=== PATIENT | female | born 2000 | race Caucasian/White ===

== ENCOUNTER 2020-03-19 16:13 | Outpatient (REF) | payer SELFPAY | END 2020-03-19 16:14 | disposition home or self-care (01) | LOC: HO.LNP 16:13 | PROVIDERS: Visit Provider Physician Assistant Medical | DX: Z02.1 Encounter for pre-employment examination (principal); Z20.828 Contact with and (suspected) exposure to other viral communicable diseases | CPT/HCPCS: 87635 ==

== ENCOUNTER 2020-12-25 21:41 | Emergency (ER) | payer OTHER, SELFPAY ==
[2020-12-25 22:07] VITALS: BP 126/78; PULSE 93; RESP 18; TEMP 37.2; O2SAT 99; BMI 33.7
[2020-12-26] MEDS: Lidocaine HCl 1 % MPF 5 ML VIAL INFILTRATI ×2 (00:10)
--- NOTE | 2020-12-26 00:12 | ED_ITS ---
HPI - Skin/Abscess/Foreign Bdy General Chief complaint: Skin/Abscess/Foreign Body Stated complaint: cyst? Time Seen by Provider: 12/25/20 23:34 Source: patient Mode of arrival: ambulatory Limitations: no limitations History of Present Illness HPI narrative: 20-year-old female who presents emergency department for evaluation of an lump to her right groin area. She states that the lump started approximately 4-5 days prior is gotten progressively larger. The lump is painful, the pain is constant and is moderate to severe in intensity. Patient states that she has had small cyst in this area in past which she is treated with heat. She has never had to have an abscess drained in this area. She denied fever, chills, weakness, fatigue. Related Data Previous Rx's Medication Instructions Recorded cephalexin 500 mg capsule 500 mg PO QID 5 Days #20 cap 12/26/20 Allergies Allergy/AdvReac Type Severity Reaction Status Date / Time No Known Allergies Allergy Verified 12/25/20 22:07 [No Known Allergies*] Review of Systems Review of Systems: Yes all other systems are reviewed and are negative [facility] Past Medical History [facility] Narrative: Past medical history: None . Past surgical history: None. Social history: She denies tobacco, alcohol use, she occasionally smokes marijuana. Social History Social History Advance Directives: No Advance Directives Information Provided: No Patient : No Physical Exam Vital Signs: Vital Signs: Last Vital Signs Temp 98.9 F 12/25/20 22:07 Pulse 93 12/25/20 22:07 Resp 18 12/25/20 22:07 BP 126/78 12/25/20 22:07 Pulse Ox 99 12/25/20 22:07 Body Mass Index 33.7 Const: General: cooperative and healthy appearing Orientation/consciousness: oriented to person Limitations: no limitations HENMT: Head: Yes normocephalic and Yes atraumatic Resp: Effort & Inspection: normal respiratory effort Skin: Other: The patient has a 3 x 3 cm right groin abscess, abscesses flocculence, there is surrounding erythema with increased warmth Neuro: General: oriented to person Psych: Appearance: grossly normal Mental Status: mental status grossly normal Speech and movement: Normal speech and movement present Course Course Course Narrative: 20-year-old female who presents emergency department for evaluation of painful right groin abscess. The patient's abscess was incised, drained packed with iodoform gauze. The patient tolerated the procedure well. She was given ibuprofen 600 mg orally for pain. She will be treated with Keflex 500 mg orally. She was started on Keflex 500 mg 4 times a day for 5 days. She was advised to take Tylenol and ibuprofen for pain. The patient was given verbal and printed instructions prior to discharge. The patient was advised to follow-up with their PCP in 2 days and to return to the emergency department if her symptoms get worse or if she develops any new symptoms that are concerning to her Procedures Abscess I/D Site: other (Groin) Side (if applicable): right Local Anesthetic: lidocaine 1% Amount of anesthesia used (mL): 10 Technique: incised with blade Amount of fluid expressed (mL): 45 Sent for culture/gram staining?: Yes Irrigation: No Packing used?: iodoform Discharge Plan Discharge Clinical Impression: Abscess of groin, right, Encounter for incision and drainage procedure Patient Disposition: Home, Self-Care Instructions: Abscess Incision and Drainage (DC) Additional Instructions: Your abscess was incised, drained and packed with gauze. Approximately 45 mL of loss was drained from the wound. The abscess cavity was packed with gauze. The gauze should stay in for 4 days. After 4 days grabbing and the gauze and pull it out. If the gauze falls out before 4 days, it does NOT need to be put back in. Take ibuprofen 200 mg pills, 3 pills every 6 hours as needed for pain. Take Tylenol (acetaminophen) 500 mg pills, 2 pills every 4 to 6 hours as needed for pain. Take Keflex (cephalexin) 500 mg pills, 1 pill 4 times a day for 5 days. This is an antibiotic. Follow-up with your doctor in 2 days. Please return to the emergency department if your symptoms get worse or if you develop any symptoms that are concerning to you. Prescriptions: New cephalexin 500 mg capsule 500 mg PO QID 5 Days Qty: 20 RF: 0
[2020-12-26] MEDS: Ibuprofen 600 MG TABLET PO (00:17)
[2020-12-26] MEDS: cephALEXin 500 MG CAPSULE PO (00:18)
== END 2020-12-26 00:44 | disposition home or self-care (01) ==
PROVIDERS: Emergency Provider Emergency Medicine Emergency Medical Services; PCP Internal Medicine
DX: L02.214 Cutaneous abscess of groin (principal)
CPT/HCPCS: 10060; 87071; 87147; 87205; 99283; 99284

== ENCOUNTER 2021-02-21 07:12 | Outpatient (REF) | payer OTHER, SELFPAY ==
[2021-02-21 07:42] LABS: COVID-19 Test Negative (Negative)
== END 2021-02-21 07:13 | disposition home or self-care (01) ==
LOC: HO.ED 07:12
PROVIDERS: PCP Internal Medicine; Visit Provider Internal Medicine
DX: Z20.822 Contact with and (suspected) exposure to COVID-19 (principal)
CPT/HCPCS: 36415; 87635

== ENCOUNTER 2021-02-22 00:50 | Emergency (ER) | payer OTHER, SELFPAY ==
[2021-02-22 00:55] VITALS: BP 134/77; PULSE 72; RESP 18; TEMP 36.8; O2SAT 99; BMI 35.4
--- NOTE | 2021-02-22 01:16 | ED_ITS ---
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 does not have RSV or flu Related Data Previous Rx's Medication Instructions Recorded cephalexin 500 mg capsule 500 mg PO QID 5 Days #20 cap 12/26/20 Allergies Allergy/AdvReac Type Severity Reaction Status Date / Time No Known Allergies Allergy Verified 12/25/20 22:07 [No Known Allergies*] Review of Systems Review of Systems: Yes all other systems are reviewed and are negative PMFSH Past Medical History Medical History No known health problems Social History Social History Advance Directives: No Advance Directives Information Provided: No Patient : No Physical Exam Vital Signs: Vital Signs: Last Vital Signs Temp 98.3 F 02/22/21 00:55 Pulse 72 02/22/21 00:55 Resp 18 02/22/21 00:55 BP 134/77 02/22/21 00:55 Pulse Ox 99 02/22/21 00:55 Body Mass Index 35.4 Appearance: Alert. Oriented X3. No acute distress. ENT: Pharynx normal. Oral Mucosa moist clear discharge from the nostrils, tympanic membrane normal bilateral Neck: Normal inspection. Neck supple. No lymphadenopathy CVS: Normal heart rate and rhythm. Pulses normal. Respiratory: No respiratory distress. Equal air entry bilateral, no wheezing/rales/rhonchi Abdomen: Soft and nontender. Skin: Skin warm and dry. Extremities: No lower extremity edema. No calf tenderness Neuro: Oriented X 3. Medical Decision Making Lab Data Lab results reviewed: Yes I reviewed the patient's lab results. Labs: Lab Results 02/22/21 Range/Units 01:34 Coronavirus (PCR) NEGATIVE (Negative) Influenza Type A (PCR) NEGATIVE (Negative) Influenza Type B (PCR) NEGATIVE (Negative) RSV RNA Qual (PCR) NEGATIVE (Negative) Discharge Plan Discharge Clinical Impression: URI (upper respiratory infection) Qualifiers: URI type: unspecified viral URI Qualified Code(s): J06.9 - Acute upper res piratory infection, unspecified Patient Disposition: Home, Self-Care Instructions: Upper Respiratory Infection (ED) Additional Instructions: Will call you with the test results possible you might have RSV/flu Drink plenty of fluids Tylenol/Motrin for pain Prescriptions: No Action cephalexin 500 mg capsule 500 mg PO QID 5 Days Qty: 20 RF: 0 Interventions: ED Discharge Assessment Last Done: 02/22/21 01:37 Discharge Date/Time: 02/22/21 01:38
[2021-02-22 02:58] LABS: Influenza A PCR NEGATIVE (Negative); Influenza B PCR NEGATIVE (Negative); Resp Syncy Virus RNA Qual PCR NEGATIVE (Negative); SARS COV2 PCR INHOUSE NEGATIVE (Negative)
== END 2021-02-22 01:38 | disposition home or self-care (01) ==
PROVIDERS: Emergency Provider Internal Medicine; PCP Internal Medicine
DX: J06.9 Acute upper respiratory infection, unspecified (principal); Z20.822 Contact with and (suspected) exposure to COVID-19; Z79.899 Other long term (current) drug therapy
CPT/HCPCS: 0241U; 36415; 99283

== ENCOUNTER 2023-04-09 21:16 | Emergency (ER) | payer OTHER, SELFPAY ==
[2023-04-09 21:26] VITALS: BP 116/71; PULSE 77; RESP 18; TEMP 36.8; O2SAT 97; BMI 33.7
--- NOTE | 2023-04-09 23:30 | PC.NURSE ---
Patient presents for abscess to the left inner thigh. Area small and hard to palpation, tender to touch.
--- NOTE | 2023-04-09 23:47 | ED_ITS ---
HPI - General Adult General Chief complaint: Skin/Abscess/Foreign Body Stated complaint: ?abscess LT thigh Time Seen by Provider: 04/09/23 23:25 Source: patient Mode of arrival: ambulatory Limitations: no limitations History of Present Illness HPI narrative: 22 yold female presents to the ED for left thight area of redness and pain. patient states pmh of multiple episodes of abscess. Patient states no fever, chills, nuasea, or vomitting. Patient states no recent trauma to the area. patient states no leg swelling, calf pain, recent long travael, or recent surgery. patient states no fever or chills. Related Data Previous Rx's Medication Instructions Recorded cephalexin 500 mg capsule 500 mg PO QID 5 days #20 caps 12/26/20 cephalexin 500 mg capsule 500 mg PO QID 7 days #28 caps 04/09/23 doxycycline hyclate 100 mg capsule 100 mg PO BID 7 days #14 caps 04/09/23 naproxen 500 mg tablet 500 mg PO BID PRN pain 7 days #14 04/09/23 tabs Allergies Allergy/AdvReac Type Severity Reaction Status Date / Time No Known Allergies Allergy Verified 12/25/20 22:07 [No Known Allergies*] Review of Systems 2 Review of Systems: left thigh red area mass Yes all other systems are reviewed and are negative PMFSH Past Medical History Medical History No known health problems Social History Social History Alcohol intake: never Smoked in Last 30 Days: No Use of substances other than those prescribed or required for medical reasons: No Advance Directives: No Advance Directives Information Provided: Yes Physical Exam ED Vital Signs: Vital Signs - 24 hr 04/09/23 21:26 04/10/23 00:11 Temperature 98.2 F Pulse Rate 77 80 Respiratory Rate 18 18 Blood Pressure 116/71 120/55 L Pulse Oximetry 97 99 Oxygen Delivery Method Room Air Room Air BMI result Body Mass Index 33.7 Const General: cooperative, healthy appearing, comfortable, no acute distress, well developed and alert Orientation/consciousness: oriented to person, oriented to place, oriented to time and patient oriented x3 HENMT Head: Yes normal to inspection, Yes No palpable skull fracture present, Yes normocephalic, Yes atraumatic and No abrasion Eyes General: appearance normal, both eyes and all related structures Neck Neck: Yes normal visual inspection, Yes full ROM, Yes no lymphadenopathy, Yes no meningeal signs, Yes trachea midline, Yes supple, No anterior neck swelling and No tender Chest Chest palpation & inspection: normal inspection of the chest and normal palpation of entire chest wall Resp Effort & Inspection: normal respiratory effort and able to speak in complete sentences Auscultation: clear to auscultation bilaterally Cardio Jugular venous distension: no JVD Heart sounds: S1 normal heart sound present and S2 normal heart sound present GI Inspection: Yes normal to inspection Palpation (GI): Soft to palpation, not firm, nontender, no guarding and not rigid General: No CVA tenderness and Yes no CVA tenderness Back/Spine/Pelvis Back: no CVA tenderness, No CVA tenderness and No back tenderness Skin General skin exam: no rashes or lesions noted, elasticity normal and turgor normal Neuro General: oriented to person, oriented to place, oriented to time, patient oriented x3, gait normal, tone normal, moves all extremities, Normal light touch and pain sensation, no meningeal signs, no focal motor deficits, CN's II-XI intact bilaterally and normal sensation to monofilament Extrem General: Yes normal to inspection, Yes full ROM and Yes capillary refill normal Knee images: 2 1. erythematous area with mass without any fluctulance. Positive for tenderness on palpation. Rest of extremities is normal and negative for calf tenderness/erythema/pitting edema. Psych Appearance: grossly normal, well kempt and not disheveled Medical Decision Making Medical Decision Making MDM Narrative: 22 yold female presents to the ED for left thigh area of redness, pain, and hard mass. patient states there was an ingroin hair and she tried to pull out and than symptoms occurrd. patient denies any leg swelling, pitting edema, or calf tenderness. Diagnoses Early abscess vs cellulitis. Not suspecting DVT, necrotizing fascitisi, CHF, arterial occlusion, or fracture, or comparment syndrome. Presently no indicatino for I&D Differential Diagnosis Differential Diagnoses: The differential diagnosis associated with the presentation includes (cellulitis, carbuncle, folloliculits, absceess, DVT, ) External Record Review External record reviewed: Other (Prior ED visit. ) Prescription Management I considered prescription management with: Pain Medication and Antibiotic Discharge Plan Discharge Clinical Impression: Cellulitis, Abscess of skin or subcutaneous tissue Patient Disposition: Home, Self-Care Instructions: Cellulitis (ED), Abscess (ED), Warm Compress or Soak (ED) Additional Instructions: presently no indication for incision and drainage. Physical exam indicate cellulitis versus early abscess. Recommend warm compression on area 4 times a day for 15 minutes. He will be discharged with antibiotics. Return to the ED immediately for any increased swelling, redness, fever, chills, red streaks, or any other concerning symptoms. Please follow-up with the primary care provider. Prescriptions: New cephalexin 500 mg capsule 500 mg PO QID 7 Days Qty: 28 0RF doxycycline hyclate 100 mg capsule 100 mg PO BID 7 Days Qty: 14 0RF naproxen 500 mg tablet 500 mg PO BID PRN (Reason: pain) 7 Days Qty: 14 0RF No Action cephalexin 500 mg capsule 500 mg PO QID 5 Days Qty: 20 0RF Stand Alone Forms: Work/School Release Interventions: ED Discharge Assessment Last Done: 04/10/23 00:12 Discharge Date/Time: 04/10/23 00:14 Print Language: Luxembourger
[2023-04-10 00:11] VITALS: BP 120/55; PULSE 80; RESP 18; O2SAT 99
== END 2023-04-10 00:14 | disposition home or self-care (01) ==
PROVIDERS: Emergency Provider Emergency Medicine
DX: L03.116 Cellulitis of left lower limb (principal); L02.416 Cutaneous abscess of left lower limb
CPT/HCPCS: 99283; 99284

== ENCOUNTER 2023-06-02 14:16 | Emergency (ER) | payer OTHER, SELFPAY ==
[2023-06-02 14:50] VITALS: BP 116/72; PULSE 95; RESP 18; TEMP 36; O2SAT 100; BMI 35.4
[2023-06-02 17:03] VITALS: BP 130/80; PULSE 91; RESP 18; TEMP 36.7; O2SAT 99
[2023-06-02] MEDS: Lidocaine HCl 1%/Epi 1:100,000 10 ML VIAL INFILTRATI (17:45)
--- NOTE | 2023-06-02 18:05 | ED.GENADULT ---
HPI - General Adult General Chief complaint: Skin/Abscess/Foreign Body Stated complaint: abscess Time Seen by Provider: 06/02/23 17:14 Source: patient, RN notes reviewed and old records reviewed Mode of arrival: ambulatory Limitations: no limitations History of Present Illness HPI narrative: 22-year-old female presents for evaluation of ?an abscess. ? Patient reports that she gets frequent abscesses in her groin She was last seen here about 2 months ago and the area improved with antibiotics alone She states for last few days she has had an abscess to the right groin that is getting larger or more painful and not improving with warm compresses Denies any fevers, chills She reports that she is due to see Dermatology due to frequent abscesses Patient reports that she recently had STD screening at an outside facility but did not have bacterial vaginosis testing would like to have that done today. Related Data Previous Rx's Medication Instructions Recorded cephalexin 500 mg capsule 500 mg PO QID 5 days #20 caps 12/26/20 cephalexin 500 mg capsule 500 mg PO QID 7 days #28 caps 04/09/23 doxycycline hyclate 100 mg capsule 100 mg PO BID 7 days #14 caps 04/09/23 naproxen 500 mg tablet 500 mg PO BID PRN pain 7 days #14 04/09/23 tabs cephalexin 500 mg tablet 500 mg PO QID #28 tabs 06/02/23 Allergies Allergy/AdvReac Type Severity Reaction Status Date / Time No Known Allergies Allergy Verified 06/02/23 14:50 [No Known Allergies*] Review of Systems Constitutional: Constitutional: Denies chills and Denies fever(s) Integumentary/Breasts: Skin/Breast: Reports erythema, Reports skin pain and Reports skin swelling PMFSH Past Medical History Onset Date is defined in the Problem List Problems that require an onset date and time if occurred within 24 hrs of arrival to the ED Aortic Dissection and Rupture; Neurologic impairment; Cardiopulmonary Arrest; Endotracheal Intubation; Insertion or Replacement of Mechanical Circulatory Assist Device Medical History No known health problems Social History Social History Alcohol intake: never Advance Directives: No Advance Directives Information Provided: No Physical Exam ED Vital Signs: Vital Signs - 24 hr 01/05/24 14:50 06/02/23 17:03 Temperature 96.8 F 98.1 F Pulse Rate 95 91 Respiratory Rate 18 18 Blood Pressure 116/72 130/80 Pulse Oximetry 100 99 Oxygen Delivery Method Room Air Room Air BMI result Body Mass Index 35.4 Const General: healthy appearing, comfortable, no acute distress, alert and awake Nutritional Appearance: well nourished Orientation/consciousness: patient oriented x3 HENMT Head: Yes normocephalic and Yes atraumatic Neck Neck: Yes full ROM Resp Effort & Inspection: normal respiratory effort, able to speak in complete sentences and not labored Skin Other: Patient has a 2 x 3 cm area of fluctuance and edema to the right groin. There is minimal surrounding erythema, the area is tender to palpation. No open wounds or drainage. General skin exam: elasticity normal Neuro General: patient oriented x3 Cranial nerves: Yes Bilaterally intact EOM present Cognition (Neuro): normal cognition Extrem Other: Moving all extremities well without any obvious deformities Medications Administered Discontinued Medications Generic Name Dose Route Start Last Admin Trade Name Caryn PRN Reason Stop Dose Admin Lidocaine/Epinephrine 10 ml 06/02/23 17:26 06/02/23 17:45 Lidocaine Hcl 1%/Epi 1:100,000 10 Ml Vial INFILTRATI 06/02/23 17:27 10 ml ONCE ONE Administration Procedures Abscess I/D Site: other (Right groin) Side (if applicable): right Local Anesthetic: lidocaine 1% and with epi Amount of anesthesia used (mL): 4 Technique: incised with blade Amount of fluid expressed (mL): 5 Sent for culture/gram staining?: No Irrigation: No (Loculations disrupted with instrument) Packing used?: none Medical Decision Making Medical Decision Making MDM Narrative: 22-year-old female presents for evaluation of a localized abscess. See procedure note, there is no evidence of sepsis, she is well-appearing with stable vital signs. A BV swab was sent to the lab. Differential Diagnosis Differential Diagnoses: The differential diagnosis associated with the presentation includes Abscess Cellulitis Dermatitis Sebaceous cyst Hidradenitis PV Discharge Plan Discharge Clinical Impression: Abscess of skin or subcutaneous tissue Patient Disposition: Home, Self-Care Instructions: Abscess (ED) Additional Instructions: Take the antibiotic as directed for 7 days Apply warm compresses every 4 hours for 10-15 minutes Return for new or worsening symptoms Follow-up with your primary doctor Prescriptions: New cephalexin 500 mg tablet 500 mg PO QID Qty: 28 0RF No Action cephalexin 500 mg capsule 500 mg PO QID 5 Days Qty: 20 0RF cephalexin 500 mg capsule 500 mg PO QID 7 Days Qty: 28 0RF doxycycline hyclate 100 mg capsule 100 mg PO BID 7 Days Qty: 14 0RF naproxen 500 mg tablet 500 mg PO BID PRN (Reason: pain) 7 Days Qty: 14 0RF
--- NOTE | 2023-06-02 18:25 | MHC.EDTECH ---
this pct applied non-stick dressing to PT groin.
== END 2023-06-02 18:38 | disposition home or self-care (01) ==
PROVIDERS: Emergency Provider Emergency Medicine
DX: L02.214 Cutaneous abscess of groin (principal); Z20.2 Contact with and (suspected) exposure to infections with a predominantly sexual mode of transmission
CPT/HCPCS: 10060; 87480; 87510; 87660; 99283; 99284

== ENCOUNTER → 2024-12-12 03:45 | Outpatient (BNV) | payer OTHER, SELFPAY | PROVIDERS: Visit Provider Radiology Vascular & Interventional Radiology | DX: K80.20 Calculus of gallbladder without cholecystitis without obstruction (principal); R10.13 Epigastric pain | CPT/HCPCS: 71046; 76705 ==

== ENCOUNTER 2024-12-12 04:11 | Emergency (ER) | payer OTHER, SELFPAY ==
[2024-12-12] VITALS (12 sets, daily range): BP systolic 119–155; BP diastolic 68–89; PULSE 58–84; RESP 12–18; TEMP 36.2–36.9; O2SAT 96–100; BMI 38.3
--- NOTE | 2024-12-12 | ECG_ITS ---
Test Reason : ABDOMINAL PAIN Blood Pressure : */* mmHG Vent. Rate : 56 BPM Atrial Rate : 56 BPM P-R Int : 156 ms QRS Dur : 84 ms QT Int : 420 ms P-R-T Axes : 66 21 31 degrees QTcB Int : 405 ms Sinus bradycardia Nonspecific T wave abnormality Abnormal ECG No previous ECGs available Referred By: Generic ED Physician Electronically Signed By: LEON RODNEY
--- NOTE | ~2024-12-12 | XR_ITS ---
CLINICAL HISTORY: chest pain 2 view chest x-ray. Comparison: None Findings: The lungs are adequately expanded. No focal consolidation. No effusion or pneumothorax. Cardiac and mediastinal contours are within normal limits. No acute osseous abnormality Impression: No acute process. This document has been electronically signed by: Jd Sandhu MD on 12/12/2024 05:36:36
--- NOTE | ~2024-12-12 | US_ITS ---
EXAMINATION: US ABDOMEN LIMITED HISTORY: RUQ pain - GB and CBD only please TECHNIQUE: Real-time grayscale ultrasound imaging of the gallbladder was performed and images were reviewed. COMPARISON: There are no prior studies available for comparison. FINDINGS: Gallbladder and biliary tree: The gallbladder is distended. Numerous shadowing calculi are seen in the gallbladder. There is no wall thickening or pericholecystic fluid. The technologist reports tenderness over the gallbladder consistent with a positive sonographic Acevedo sign. The common bile duct is normal in caliber measuring 5 mm. There is no free fluid in the right upper quadrant. US/US abdomen limited IMPRESSION: Distended gallbladder with cholelithiasis and a positive sonographic Acevedo sign. Findings are consistent with acute cholecystitis. Electronically signed by: Familia Doss MD 12/12/2024 08:02 AM EDT
[2024-12-12 05:20] LABS: MANUAL DIFF FLAG NO
[2024-12-12 05:21] LABS: Hematocrit 36.0 % (37.0-47.0); Hemoglobin 12.0 g/dl (12.0-16.0); Imm Gran Abs Auto 0.02 X10*3/uL (0.00-0.03); Imm Gran Pct Auto 0.3 % (0.0-0.4); Lymphocytes Absolute Auto 2.1 X10*3/uL (1.2-4.9); Mean Corpuscular HGB Conc 33.3 g/dl (31.0-35.0); Mean Corpuscular Hemoglobin 28.5 pg (27.0-33.0); Mean Corpuscular Volume 85.5 fL (80.0-98.0); NRBC Abs Auto 0.000 X10*3/uL (0.0-0.012); NRBC Pct Auto 0.0 /100WBC (0.0-0.2); Platelet Count 281 X10*3/uL (160-400); Red Blood Count 4.21 X10*6/uL (4.20-5.50); White Blood Count 6.3 X10*3/uL (4.8-10.8)
[2024-12-12 05:39] LABS: Alanine Aminotransferase 10 U/L (0-31); Albumin Level 4.3 g/dL (3.5-5.0); Alkaline Phosphatase 96 U/L (39-117); Anion Gap 13 (12-20); Aspartate Amino Transferase 22 U/L (5-31); Blood Urea Nitrogen 12 mg/dL (9-16); Calcium 9.3 mg/dL (8.4-10.2); Carbon Dioxide 26 mmol/L (22-29); Chloride 107 mmol/L (96-108); Creatinine Clr Calc Pharmacy 136.3; Estimated Glomerular Filt Rate > 60; Lipase 14 U/L (8-78); Potassium 4.1 mmol/L (3.3-5.1); Sodium 142 mmol/L (135-145); Total Protein 7.6 g/dL (6.5-8.0)
[2024-12-12 05:40] LABS: Appearance Urine Clear; Glucose Urine UA Negative (Negative); PH 6.0 (5.0-9.0); Specific Gravity - Urine 1.020 (1.005-1.025); UMIC TRIGGER UACC YES
[2024-12-12 05:43] LABS: Troponin-I High Sensitivity < 2.7 ng/L (<3.5-17.0)
[2024-12-12 06:01] LABS: UACC Culture Trigger YES
--- NOTE | 2024-12-12 07:03 | ED.ABDPAIN ---
HPI - Abdominal Pain General Chief Complaint: Abdominal Pain Stated Complaint: 2 months + abd pain Time Seen by Provider: 12/12/24 06:58 Source: patient and old records reviewed Mode of arrival: ambulatory Limitations: no limitations History of Present Illness ED Provider: MICHELINE HPI narrative: 24 yo female with no sig PMH she is 2 months PP from normal vaginal delivery she is . She notes about 2 months of nightime upper abd pain now worse after eating. She has nausea as well but no vomiting or diarrhea. She takes no NSAIDs and did not take any post . No fevers or unintentional weight loss. She has never had this before. All foods bother her. MD elicited complaint: abdominal pain Pertinent past history: none Onset (ago): month(s) (2) Pain Consistency: intermittent Location: epigastric Severity: moderate Quality: aching Radiation: RUQ Migration to: no migration Exacerbating factors: eating Relieving factors: nothing Associated symptoms: nausea Related Data Previous Rx's ?Medication ?Instructions ?Recorded cephalexin 500 mg capsule 500 mg PO QID 5 days #20 caps 12/26/20 cephalexin 500 mg capsule 500 mg PO QID 7 days #28 caps 04/09/23 doxycycline hyclate 100 mg capsule 100 mg PO BID 7 days #14 caps 04/09/23 naproxen 500 mg tablet 500 mg PO BID PRN pain 7 days #14 04/09/23 tabs cephalexin 500 mg tablet 500 mg PO QID #28 tabs 06/02/23 metronidazole 500 mg tablet 500 mg PO BID 7 days #14 tabs 06/05/23 Allergies Allergy/AdvReac Type Severity Reaction Status Date / Time No Known Allergies (No Known Allergy Verified 12/12/24 04:32 Allergies*) Review of Systems Review of Systems Constitutional : No Weight loss, No Fever, No Chills ENT/Mouth : No sore throat, No Rhinorrhea Eyes: No Swelling, No Redness Cardiovascular : No Chest Pain, No SOB, No Edema Respiratory : No Cough, No Sputum, No Wheezing Gastrointestinal : Positive Nausea, no Vomiting, noDiarrhea, positive abdominal Pain, No Hematochezia, No Melena Genitourinary : No Dysuria, No Urinary Frequency, No Hematuria, No Urgency Musculoskeletal : No joint pain, No Myalgias, No Joint Swelling All other systems reviewed and are negative. All other systems reviewed and are negative PMFSH Past Medical History Attestation statement: The following information was validated with the patient. Source: old records reviewed Medical History No known health problems Social History Social History Alcohol intake: never Smoked in Last 30 Days: No Use of substances other than those prescribed or required for medical reasons: No Advance Directives: No Advance Directives Information Provided: Yes Do you have a plan to hurt others: No Plan Patient : No Physical Exam ED Vital Signs: Vital Signs - 24 hr 12/12/24 04:30 12/12/24 06:25 12/12/24 07:51 Temperature 98.5 F 98.5 F Pulse Rate 58 84 73 Respiratory Rate 17 18 18 Blood Pressure 125/72 131/86 125/74 Pulse Oximetry 99 96 99 Oxygen Delivery Method Nasal Cannula Room Air Room Air BMI result Body Mass Index 38.3 Appearance: Alert. Oriented X3. No acute distress. Eyes: Pupils equal, round and reactive to light. ENT: Pharynx normal. Neck: Normal inspection. Neck supple. CVS: Normal heart rate and rhythm. Pulses normal. Respiratory: No respiratory distress. Breath sounds normal. Abdomen: Soft and ttp in RUQ neg michel's sign Skin: Skin warm and dry. Normal skin color. Normal skin turgor. Extremities: No lower extremity edema. No calf ttp Neuro: Oriented X 3. No motor deficit. No sensory deficit. CN2-12 intact Medical Decision Making Medical Decision Making MDM Narrative: 24 yo female with 2 months of RUQ and epigastric pain at night and after eating - she has no risk factors for PUD and her exam there is no michel's sign. Given her symptoms I am going to obtain US and labs - liver, lipase. Suspect gastritis, PUD, biliary colic. She is I will start her on famotidine and sucralfate until she sees her PCP for h. pylori testing. Differential Diagnosis Differential Diagnoses: The differential diagnosis associated with the presentation includes PUD, gastritis, biliary colic no hemolysis, elevated liver enzymes, low platelets or HTN to suggest HELLP/preeclampsia Admission/Observation Consideration of admission/observation: Escalation of care including admission/observation considered to be admitted for surgery Consult Healthcare Provider Management of the patient was discussed with: Director Of [employer] (Nicholas david will see patient) Lab Data MDM Lab Attestation statement: I reviewed the patient's lab results. 12/12/24 05:15 12/12/24 05:15 Labs: Lab Results 12/12/24 12/12/24 Range/Units 05:15 05:33 WBC 6.3 (4.8-10.8) X10*3/uL RBC 4.21 (4.20-5.50) X10*6/uL Hgb 12.0 (12.0-16.0) g/dl Hct 36.0 L (37.0-47.0) % MCV 85.5 (80.0-98.0) fL MCH 28.5 (27.0-33.0) pg MCHC 33.3 (31.0-35.0) g/dl RDW 12.8 (11.0-16.0) % Plt Count 281 (160-400) X10*3/uL MPV 9.3 L (9.4-12.3) fL Immature Gran % (Auto) 0.3 (0.0-0.4) % Neut % (Auto) 58.2 (45-73) % Lymph % (Auto) 32.6 (20-40) % [place] % (Auto) 7.2 (2-11) % Eos % (Auto) 1.4 (0-4) % Baso % (Auto) 0.3 (0-2) % Lymph # (Auto) 2.1 (1.2-4.9) X10*3/uL [place] # (Auto) 0.5 (0.1-1.2) X10*3/uL Eos # (Auto) 0.1 (0.0-0.4) X10*3/uL Baso # (Auto) 0.0 (0.0-0.2) X10*3/uL Abs Immat Gran (auto) 0.02 (0.00-0.03) X10*3/uL Absolute Neuts (auto) 3.7 (2.0-8.3) x10*3/uL Absolute Nucleated RBC 0.000 (0.0-0.012) X10*3/uL Nucleated RBC % (auto) 0.0 (0.0-0.2) /100WBC Sodium 142 (135-145) mmol/L Potassium 4.1 (3.3-5.1) mmol/L Chloride 107 (96-108) mmol/L Carbon Dioxide 26 (22-29) mmol/L Anion Gap 13 (12-20) BUN 12 (9-16) mg/dL Creatinine 0.71 (0.5-1.4) mg/dL Estim Creat Clear Calc 136.3 Estimated GFR > 60 Random Glucose 89 (60-115) mg/dL Calcium 9.3 (8.4-10.2) mg/dL Total Bilirubin 0.4 (0.0-1.0) mg/dL AST 22 (5-31) U/L ALT 10 (0-31) U/L Alkaline Phosphatase 96 (39-117) U/L Troponin I High Sens < 2.7 (<3.5-17.0) ng/L Total Protein 7.6 (6.5-8.0) g/dL Albumin 4.3 (3.5-5.0) g/dL Lipase 14 (8-78) U/L Urine Color Yellow Urine Appearance Clear Urine pH 6.0 (5.0-9.0) Ur Specific [place] 1.020 (1.005-1.025) Urine Protein Negative (Neg-Trace) mg/dL Urine Glucose (UA) Negative (Negative) mg/dL Urine Ketones Negative (Negative) mg/dL Urine Blood Large (3+) H (Negative) Urine Nitrite Negative (Negative) Ur Leukocyte Esterase Small (1+) H (Negative) Urine RBC 11-20 H (0-2) /HPF Urine WBC 0-5 (0-5) /HPF Ur Squamous Epith Cells 0-2 (0-2) /HPF Urine Bacteria None Seen (None Seen) Hyaline Casts 0-2 (0-2) /LPF Independent Interpretation I performed an independent interpretation of an: EKG and Ultrasound (stones and + murphys) Interpretation: Rate: 56 Rhythm: sinus bradycardia Pillow: normal Normal P waves. Normal MALOU. Normal QRS complex. ST T wave : no PETEY, inverted t waves V1 qTC: 405 prior studies: no acute ischemia The study has been interpreted contemporaneously by me. . Radiology Impression Discussion of test interpretation with radiology: I have reviewed the radiologist's reading. External Record Review External record reviewed: Outpatient record Discharge Plan Discharge Clinical Impression: Biliary colic Gastritis Qualifiers: Gastritis type: unspecified gastritis Chronicity: acute Gastritis bleeding: without bleeding Qualified Code(s): K29.00 - Acute gastritis without bleeding Patient Disposition: Xfer Other Transfer Details: short stay surgery Prescriptions: No Action cephalexin 500 mg capsule 500 mg PO QID 5 Days Qty: 20 0RF cephalexin 500 mg tablet 500 mg PO QID Qty: 28 0RF metronidazole 500 mg tablet 500 mg PO BID 7 Days Qty: 14 0RF cephalexin 500 mg capsule 500 mg PO QID 7 Days Qty: 28 0RF doxycycline hyclate 100 mg capsule 100 mg PO BID 7 Days Qty: 14 0RF naproxen 500 mg tablet 500 mg PO BID PRN (Reason: pain) 7 Days Qty: 14 0RF Print Language: Vietnamese
--- NOTE | 2024-12-12 08:35 | PM.HPGS ---
History of Present Illness History of Present Illness Date of Service: 12/12/24 <Yesenia Corbett PA-C - Last Filed: 12/12/24 08:45> 12/12/24 <Santi Peterson MD - Last Filed: 12/12/24 09:07> Chief complaint: 2 months + abd pain <Yesenia Corbett PA-C - Last Filed: 12/12/24 08:45> Narrative: Milagro Lara is a 24 year old female with no known PMH who presented to the ED for evaluation of RUQ abd pain. She reports over the past month or so, she has been having RUQ abd pain, sometimes after eating. The pain would usually subside fairly quickly and was not that severe. The episodes became more frequent and now she reports over the past few days she has been woken up from her sleep due to the pain. It was so bad last night she was unable to fall back asleep. The pain is associated with nausea without vomiting. She therefore came to the ED. Work up included CBC, BMP, LFTs. No leukocytosis and LFTs WNL. ABD US showed distended gallbladder with gallstones and a positive sonographic Acevedo sign. She reports feeling a little better and the pain is less severe. She is 2 months , reports a normal spontaneous vaginal delivery, and is . She is on no daily medications. She denies fever, chills, diarrhea, sick contacts, change in urine/skin/stool color. <Yesenia Corbett PA-C - Last Filed: 12/12/24 08:45> Review of Systems Review of Systems: Yes all other systems are reviewed and are negative <Yesenia Corbett PA-C - Last Filed: 12/12/24 08:45> PMFSH Past Medical History Medical History: Medical History No known health problems <Yesenia Corbett PA-C - Last Filed: 12/12/24 08:45> Social History Social History: Social History Alcohol intake: never Smoked in Last 30 Days: No Use of substances other than those prescribed or required for medical reasons: No Advance Directives: No Advance Directives Information Provided: Yes Do you have a plan to hurt others: No Plan Patient : No <ARSALAN Castañeda Last Filed: 12/12/24 08:45> Meds Allergies/Adverse reactions: Allergies Allergy/AdvReac Type Severity Reaction Status Date / Time No Known Allergies (No Known Allergy Verified 12/12/24 04:32 Allergies*) <ARSALAN Castañeda Last Filed: 12/12/24 08:45> Active Medications: Current Medications Cefotetan Disodium (Cefotetan Disodium 2 Gm Vial) 2 gm IM ONCE ONE Stop: 12/12/24 08:35 Lactated Ringer's (Lr) 1,000 mls @ 999 mls/hr IV .Q1H1M ONE Stop: 12/12/24 09:22 <ARSALAN Castañeda Last Filed: 12/12/24 08:45> Physical Exam Vital Signs: Vital Signs: Last Vital Signs Temp 98.5 F 12/12/24 06:25 Pulse 73 12/12/24 07:51 Resp 18 12/12/24 07:51 BP 125/74 12/12/24 07:51 Pulse Ox 99 12/12/24 07:51 O2 Del Method Room Air 12/12/24 07:51 BMI result Body Mass Index 38.3 <ARSALAN Castañeda Last Filed: 12/12/24 08:45> Const: General: comfortable, no acute distress and alert <ARSALAN Castañeda Last Filed: 12/12/24 08:45> Orientation/consciousness: patient oriented x3 <ARSALAN Castañeda Last Filed: 12/12/24 08:45> Resp: Effort & Inspection: normal respiratory effort, able to speak in complete sentences, not labored and not tachypneic <ARSALAN Castañeda Last Filed: 12/12/24 08:45> GI: Other: mildly corpulent abdomen <ARSALAN Castañeda Last Filed: 12/12/24 08:45> Inspection: No distended and No scar <ARSALAN Castañeda Last Filed: 12/12/24 08:45> Palpation (GI): Soft to palpation, Tenderness to palpation present (GI) in the RUQ (mild); Acevedo's sign negative, no guarding and not rigid <Yesenia Corbett PA-C Last Filed: 12/12/24 08:45> Percussion: Yes normal to percussion <Yesenia Corbett PA-C Last Filed: 12/12/24 08:45> Skin: General skin exam: no rashes or lesions noted and no jaundice <Yesenia Corbett PA-C Last Filed: 12/12/24 08:45> Neuro: General: patient oriented x3 and moves all extremities <ARSALAN Castañeda Filed: 12/12/24 08:45> Results Results Labs: Short CBC 12/12/24 Range/Units 05:15 WBC 6.3 (4.8-10.8) X10*3/uL Hgb 12.0 (12.0-16.0) g/dl Hct 36.0 L (37.0-47.0) % Plt Count 281 (160-400) X10*3/uL BMP 12/12/24 05:15 Sodium 142 Potassium 4.1 Chloride 107 Carbon Dioxide 26 BUN 12 Creatinine 0.71 Calcium 9.3 Liver Function 12/12/24 Range/Units 05:15 Total Bilirubin 0.4 (0.0-1.0) mg/dL AST 22 (5-31) U/L ALT 10 (0-31) U/L Alkaline Phosphatase 96 (39-117) U/L Albumin 4.3 (3.5-5.0) g/dL Urine 12/12/24 Range/Units 05:33 Urine Color Yellow Urine Appearance Clear Urine pH 6.0 (5.0-9.0) Ur Specific [place] 1.020 (1.005-1.025) Urine Protein Negative (Neg-Trace) mg/dL Urine Glucose (UA) Negative (Negative) mg/dL <ARSALAN Castañeda Last Filed: 12/12/24 08:45> Chest x-ray: report reviewed and image reviewed <ARSALAN Castañeda Last Filed: 12/12/24 08:45> Abdominal ultrasound report/results: report reviewed and image reviewed <Yesenia Corbett PA-C - Last Filed: 12/12/24 08:45> Additional studies: labs reviewed <Yesenia Corbett PA-C - Last Filed: 12/12/24 08:45> Assessment and Plan (1) Biliary colic: Status: Acute <Yesenia Corbett PA-C - Last Filed: 12/12/24 08:45> She has had worsening right upper quadrant pain which has also becoming more frequent the past. Currently tender on the right upper quadrant Ultrasound reviewed -gallstones with positive sonographic Acevedo's sign LFTs normal Lipase normal In view of her worsening tenderness and pain, I offered her the option of proceeding with cholecystectomy today I explained the technique of laparoscopic cholecystectomy and possible open cholecystectomy I reviewed the risks including but not limited to bleeding, infections, injury to other organs including bowel, liver and the bile duct, bile leak, retained stones, as well as the benefits and alternatives She understands and wants to proceed Her was involved with the discussion The patient was seen and examined with DIALLO Corbett <Santi Peterson MD - Last Filed: 12/12/24 09:07> 24 year old female with intermittent episodes of RUQ pain with pain that has become more constant and severe over the past several days with imaging showing gallstones, distended gallbladder without surrounding inflammatory changes. Overall picture with worsening biliary colic, possible acute cholecystitis. In view of her worsening symptoms, laparoscopic possible open cholecystectomy was recommended. Risks, benefits, alternatives of laparoscopic possible open cholecystectomy were reviewed with the patient including but not limited to bleeding, infection, numbness, pain, poor healing, injury to the liver, bowel or bile ducts, leak, retained stones and the patient wishes to proceed.? Arrangements will be made for this today.?All questions were answered. Patient expresses wish to go home following the procedure today if possible. <Yesenia Corbett PA-C - Last Filed: 12/12/24 08:45> Quality Stroke Does the patient have a stroke diagnosis?: No <ARSALAN Castañeda Last Filed: 12/12/24 08:45> VTE Prior VTE?: No <Yesenia Corbett PA-C - Last Filed: 12/12/24 08:45> VTE Risk Level:: Surgical - low <Yesenia Corbett PA-C - Last Filed: 12/12/24 08:45> VTE Device Contraindication: N/A - Device Ordered <Yesenia Corbett PA-C - Last Filed: 12/12/24 08:45> VTE Drug Contraindication: Treatment Not Indicated <Yesenia Corbett PA-C - Last Filed: 12/12/24 08:45> Procedures Date of Service Date of Service: 12/12/24 <Yesenia Corbett PA-C - Last Filed: 12/12/24 08:45> 12/12/24 <Santi Peterson MD - Last Filed: 12/12/24 09:07>
[2024-12-12] MEDS: Lactated Ringers 1,000 ML 999 ML IV (08:53)
[2024-12-12] MEDS: Lactated Ringers 1,000 ML 80 ML IVCONT (10:55)
--- NOTE | 2024-12-12 11:37 | HO.ANESPROP2 ---
FORM[facility]LY [facility] Active Problems Active Problems: All Active Problems (Updated 12/12/24 @ 08:09 by Hanny Sewell DO) Biliary colic (Acute) Gastritis (Acute) Past Medical History Medical History No known health problems Functional capacity: independent ambulation Narrative: patient had child 2 months ago Family History Family history of problems with anesthesia: No Surgical History History of Problems with Anesthesia: No Social History Social History Are you a primary health care recruiter to a significant other at home: No Do you presently have visiting nurse or other home services: No Alcohol intake: never Patient Tobacco Use Status: Never used Tobacco Smoked in Last 30 Days: No Use of substances other than those prescribed or required for medical reasons: No Have you been hit, kicked, punched, or otherwise hurt by someone within the past year? If so, by whom?: No Are you DNR?: No Advance Directives: No Advance Directives Information Provided: Yes Do you have a plan to hurt others: No Plan Patient : Yes FDLMP: 12/11/2024 : Yes (2 months ) Poor oral hygiene: No Meds Allergies Allergy/AdvReac Type Severity Reaction Status Date / Time No Known Allergies (No Known Allergy Verified 12/12/24 04:32 Allergies*) Active Medications: Current Medications Lactated Ringer's (Lr) 1,000 mls @ 80 mls/hr IVCONT .[id number] ASIA Last Admin: 12/12/24 10:55 Dose: 80 mls/hr Home Medications ?Medication ?Instructions ?Recorded ?Confirmed ?Last Taken ?Type vit no.95-ferrous 1 tab PO DAILY 12/12/24 12/12/24 12/11/24 History fumarate 28 mg-folic acid 800 mcg tablet () Exam Exam Date and Time: 12/12/2024 Height,Weight and Vital Signs: Height 5 ft 3 in Weight 98.2 kg Last Vital Signs Temp 97.8 F 12/12/24 10:48 Pulse 63 12/12/24 10:48 Resp 12 12/12/24 10:48 BP 119/69 12/12/24 10:48 Pulse Ox 100 12/12/24 10:48 O2 Del Method Room Air 12/12/24 10:48 Pertinent Lab Results Pertinent Lab Results: Laboratory Tests 12/12/24 12/12/24 12/12/24 05:15 05:33 08:49 WBC 6.3 RBC 4.21 Hgb 12.0 Hct 36.0 L MCV 85.5 MCH 28.5 MCHC 33.3 RDW 12.8 Plt Count 281 MPV 9.3 L Immature Gran % (Auto) 0.3 Neut % (Auto) 58.2 Lymph % (Auto) 32.6 [place] % (Auto) 7.2 Eos % (Auto) 1.4 Baso % (Auto) 0.3 Lymph # (Auto) 2.1 [place] # (Auto) 0.5 Eos # (Auto) 0.1 Baso # (Auto) 0.0 Abs Immat Gran (auto) 0.02 Absolute Neuts (auto) 3.7 Absolute Nucleated RBC 0.000 Nucleated RBC % (auto) 0.0 Sodium 142 Potassium 4.1 Chloride 107 Carbon Dioxide 26 Anion Gap 13 BUN 12 Creatinine 0.71 Estim Creat Clear Calc 136.3 Estimated GFR > 60 Random Glucose 89 Calcium 9.3 Total Bilirubin 0.4 AST 22 ALT 10 Alkaline Phosphatase 96 Troponin I High Sens < 2.7 Total Protein 7.6 Albumin 4.3 Lipase 14 Beta HCG, Quant < 2 Urine Color Yellow Urine Appearance Clear Urine pH 6.0 Ur Specific [place] 1.020 Urine Protein Negative Urine Glucose (UA) Negative Urine Ketones Negative Urine Blood Large (3+) H Urine Nitrite Negative Ur Leukocyte Esterase Small (1+) H Urine RBC 11-20 H Urine WBC 0-5 Ur Squamous Epith Cells 0-2 Urine Bacteria None Seen Hyaline Casts 0-2 Blood Type O Positive Antibody Screen NEGATIVE Airway Mallampati Class: I TM Dist: >3cm Neck ROM: Full Loose/Missing/Broken Teeth: No (normal dentition) Heart: rrr Lungs: cta Other: normal orientation and cognitive function Assessment and Plan Assessment Anesthesia Assessment: Anesthesia Plan Discussed and Chart Reviewed Final Anesthetic Review Family History of Problems with Anesthesia: No History of Problems with Anesthesia: No NPO: Yes ASA Class: II Final Preanesthetic Review: No Changes in Pt Med Stat, Meds/Allgs Chart Reviewed, Consent Obtained/Reviewed and Anes Risks/Benef Reviewed Patient Risk: Low Procedure Risk: Low Anesthetic Plan Anesthetic Plan: GA
[2024-12-12] MEDS: cefoTEtan disodium 2 GM VIAL IVPUSH (12:20)
--- NOTE | 2024-12-12 13:03 | W.PM.OPN ---
Operative Note Operative Note Date of Service: 12/12/24 Narrative: Preop diagnosis: Gallstones with pain Postop diagnosis: Acute calculous cholecystitis Procedure: Laparoscopic cholecystectomy Surgeon: Santi Peterson MD fundraising assistant: DIALLO Corbett The patient is a 24-year-old female who came to the ER early this morning because of right upper quadrant pain and tenderness. This has been ongoing for several weeks and has been worsening. She was tender on exam. She had gallstones on ultrasound. In view of her significant pain and tenderness, she wanted to proceed with cholecystectomy. She understood the technique of laparoscopic cholecystectomy and possible open and she was aware of the risks, benefits, and alternatives.. She was brought to the operating room. She was placed supine under general anesthesia via endotracheal tube. The abdomen was prepped and draped in the usual sterile fashion. A surgical time-out was done. The patient received Cefotan 2 g IV preoperatively. I made a short supraumbilical incision with a blade 15. This was carried down through the full-thickness of the skin and thick subcutaneous fat down to the fascia. The fascia was incised. The peritoneum was entered. Through this incision a Hirsch port was introduced. Pneumoperitoneum was introduced to a pressure of 15 mm Hg. From here on the rest of the procedure was done under vision with the 10 mm 0 degree scope. With laparoscopic visualization and inserted a 12 mm port in the epigastric area below the subcostal margin. Two 5 mm ports introduced via small incisions below the subcostal margin along the anterior axillary line and the midclavicular line. Graspers were placed through these working ports. The patient is placed in a head up and [id number] position The gallbladder was seen. This appeared erythematous and distended but soft. We were able to easily applied a grasper at the fundus to retract the gallbladder cephalad. Another retractor was applied towards the neck to retract the gallbladder laterally. The gallbladder was being retracted in a cephalad lateral fashion to put the area of the cystic duct on stretch . I carefully dissected the neck of the gallbladder by peeling off the peritoneum and fat using the [place] dissector until was able to clearly see the cystic duct. We continued to dissect the cystic duct to confirm its confluence with the neck of the gallbladder. By doing so we are able to also achieve a critical view of the hepatocystic triangle. The cystic artery was seen running along with the cystic duct itself. There were no other large structures in the area. With the confluence of the neck of the gallbladder with the cystic duct confirmed, we applied clips on the cystic duct with 2 clips being applied distally. The cystic duct was transected between clips with Endo scissors. The cystic artery appeared to be with the cystic duct itself and were clipped together. With a retraction of the gallbladder away from the liver bed, I proceeded to then gently divide the hilum with the electrocautery spatula. We incised the peritoneum of the gallbladder he had interface with the liver bed with electrocautery. The gallbladder was erythematous but soft. We proceeded with separation of the gallbladder from the liver bed along without the well-defined plane of dissection using a combination of blunt dissection with the tip of the electrocautery spatula and electrocautery itself all the way to the fundus until the entire gallbladder was completely from the liver bed. The gallbladder was retrieved through an endobag through the umbilical incision. We had to lengthen the fascial incision of the umbilicus a little bit to allow retrieval of the large gallbladder. The gallbladder was noted to be packed with stones I reinserted all ports and re-insufflated. I examined all 4 quadrants. There was no other pathology. There was no evidence of any bowel injury or any bile leak . We cauterized area of oozing from the liver from the retraction. Once we confirmed good hemostasis, I desufflated through the port sites. I removed all ports under vision with the laparoscope. The umbilical port was removed last. The fascia of the umbilical incision was closed with a [id number] Polysorb 0 stitch. Skin closure was achieved on all incisions with Polysorb 4-0 subcuticular running sutures. All incisions were infiltrated with Marcaine 0.5% for postop analgesia. Steri-Strips and dressings were applied. The patient tolerated the procedure well. There were no immediate complications. Estimated blood loss about 50 cc . Initial and final counts of sponges and instruments were correct. She was extubated without difficulty and transferred to the recovery room with stable vital signs.
--- NOTE | 2024-12-12 14:02 | PM.EVENT ---
Event Note Date of Service: 12/16/24 Event Note: Seen postop She underwent uneventful laparoscopic cholecystectomy earlier for severely symptomatic gallstones Intraop findings suggestive of acute cholecystitis; the gallbladder was also packed with multiple stones Currently appears comfortable with good pain control Stable vital signs Abdomen is soft She has a 2-month-old baby at home and wants to be discharged Instructions reinforced with her and her Fawad Follow up instructions also given Oxycodone prescribed Time Spent With Patient Time: Total time managing care of this patient today ____ minutes.
== END 2024-12-12 14:09 | disposition home or self-care (01) ==
PROVIDERS: Surgery; Emergency Provider Emergency Medicine
PROC: 0FT44ZZ Resection of Gallbladder, Percutaneous Endoscopic Approach (ICD-10-PCS; CPT 47562; principal; 2024-12-12 12:10)
DX: K80.50 Calculus of bile duct without cholangitis or cholecystitis without obstruction (principal); K29.00 Acute gastritis without bleeding; R10.11 Right upper quadrant pain
CPT/HCPCS: 47562; 36415; 71046; 76705; 80053; 81001; 83690; 84484; 84702; 85025; 86850; 86900; 86901; 87086; 87147; 88304; 93005; 96361; 96374; 96375; 99285; J0330; J1885; J2003; J2704; J2795; J3010; J7120

== ENCOUNTER → 2024-12-12 04:57 | Outpatient (BNV) | payer OTHER, SELFPAY | PROVIDERS: Emergency Provider Emergency Medicine; Visit Provider Internal Medicine | DX: R00.1 Bradycardia, unspecified (principal) | CPT/HCPCS: 93010 ==

== ENCOUNTER → 2024-12-12 05:41 | Outpatient (BNV) | payer OTHER, SELFPAY | PROVIDERS: Emergency Provider Emergency Medicine; Visit Provider Physician Assistant Surgical | DX: K80.50 Calculus of bile duct without cholangitis or cholecystitis without obstruction (principal) | CPT/HCPCS: 99222 ==

== ENCOUNTER 2025-01-01 15:11 | Outpatient (AMB) | payer OTHER, SELFPAY ==
--- NOTE | 2025-01-01 15:15 | MHC.OFFVIS ---
Vital Signs 01/01/25 15:17 Weight 216 lb BP 121/68 Blood Pressure Location Rt brachial Position Sitting Pulse 77 Intake Visit Reasons: s/p cholecystectomy Intake Note: Patient here s/p Laparoscopic cholecystectomy. Patient c/o: spitting suture on superior incision. Never picked up rx pain meds. Surgery: 12-12-2024 Header Up Required: No Accompanied by: Self / Same As Patient Allergies No Known Allergies (No Known Allergies*) Allergy (Verified 01/01/25 15:18) HPI HPI s/p cholecystectomy: Details: 24 year old female here for a postop visit. She had undergone laparoscopic cholecystectomy for acute cholecystitis last 12/12/2024. She tolerated the procedure well and was discharged on the same day. She says she is doing very well. She denies GI complaints and she feels well overall. [facility] Medical History No known health problems Surgical History Status post cholecystectomy Hx laparoscopic cholecystectomy (12/12/24) Social History Are you a primary ocular care technician to a significant other at home: No Do you presently have visiting nurse or other home services: No Alcohol intake: never Patient Tobacco Use Status: Never used Tobacco Review of Systems Const Denies chills and Denies fever(s) Physical Exam Const General: comfortable and no acute distress Orientation/consciousness: patient oriented x3 Eyes Other: Anicteric sclerae Neck Neck: Yes no lymphadenopathy Resp Auscultation: clear to auscultation bilaterally Cardio Rhythm: regular rhythm GI Other: All incisions are well healed Palpation (GI): Soft to palpation, nontender and no guarding Neuro General: patient oriented x3 Assessment & Plan Assessment & Plan (1) Status post cholecystectomy: Code(s): Z90.49 - Acquired absence of other specified parts of digestive tract Category: Surgical Plan: She is doing very well overall. All incisions are well healed. I advised her to avoid lifting anything more than 20 lb for about 2 more weeks. She can otherwise follow up on a p.r.n. basis. Medications: Discontinued naproxen Discontinued Reason: Patient no longer taking 500 mg PO BID 7 days PRN 14 tabs 0RF pain oxycodone Partial Fill upon patient request. Discontinued Reason: Patient no longer taking 5 mg PO Q4H PRN 24 tabs 0RF pain (scale score 7-10) Coding Level of Care Code Global (02035) Diagnoses Status post cholecystectomy Z90.49
[2025-01-01 15:17] VITALS: BP 121/68; PULSE 77
--- OUTSIDE RECORDS SUMMARY | 2025-01-01 15:41 | XMS_ITS ---
Author Name [facility] Organization Unknown Care Team Organization Name Specialty Phone Email Start Date End Da te [facility] Samanta Jim Primary [facility] 10/03/20222023 [facility] Sherwin Lucero Primary Care 04/05/20222023
--- OUTSIDE RECORDS SUMMARY | 2025-01-01 15:41 | XMS_ITS | Clinical Summary ---
Author Organization [facility] [address] [facility] Address [address] [place] [phone] Phone Care Team Providers Care Court Bailiff Or Sheriff Name Role Phone Kati Villasenor MD Primary Care Provider [phone] Allergies No known active allergies Medications glycerin-witch Ezekiel 12.5-50 % pads Apply 1 each topically if needed for irritation. 5 Active vitamin iron fum-folic acid 28-0.8 mg per tablet Take 1 tablet by mouth 1 (one) time each day. 30 each 11 5 Active Active Problems Problem Noted Date Diagnosed Date Anxiety 03/07/2024 Severe obesity (BMI 35.0-39. 9) with comorbidity (CMS/[facility] V24, [facility] V28) 03/07/2024 Hidradenitis 02/06/2020 Overview (12/15/2024): Bilateral low back pain without sciatica 016 Overview (03/07/2024): [facility] Last Assessment & Plan: 9-19 [facility] Scoliosis 09/03/2014 Overview (03/07/2024): 4-15 f[facility] There is 20? of dextroscoliosis of the thoracic spine Appt,mild idiopathic scoliosis and mechanical back pain,ref PT for core and postural exercises F/u spinal film 6m due 03-13 7-17 f/u appt scheduled per mom.- monae appt for back pain. seen 4-19 pain not related to scoliosis/xray unchanged scoliosis Reviewed body mechanics and musculo-skeletal tension. PT recommended/bra support reviewed if paresthesia return to clinic Last Assessment & Plan: 4-19 pain not related to scoliosis/xray unchanged scoliosis Reviewed body mechanics and musculo-skeletal tension. PT recommended/bra support reviewed if paresthesia return to clinic Closed spina bifida (CMS/HCC V24, CMS/HCC V28) 1 06/09/2009 Overview (07/30/2024): Incidental finding xray 10-10 (asymptomatic)[facility] appt 09-23-14 [facility] [place] Last Assessment & Plan: Incidental finding xray 10-10 (asymptomatic)[facility] Incidental finding xray 10-10 (asymptomatic)[facility] appt 09-23-14 [facility] update 02/2024: [employer] testing done in [facility] recommends detailed FAS- WNL Last Assessment & Plan: Incidental finding xray 10-10 (asymptomatic)[facility] 07/30/2024 referred to ob anesthesia for consult Resolved Problems Problem Noted Date Diagnosed Date Resolved Date 10/06/2024 10/08/2024 Positive GBS test 09/12/2024 10/08/2024 Overview (09/27/2024): Treat in labor Encounter for supervision of normal first in second trimester 04/22/2024 04/22/2024 Encounter for supervision of normal , antepartum 04/22/2024 11/20/2024 Overview (09/12/2024): 1. [facility] site: [address] 2. Delivery site: [facility] 3. Mobile Mommas: No 4. Dating criteria: LMP only 5. Blood type: O pos 6. Genetic screening: Low-risk female; [id number] neg 6. GBS: Date: 09/10 GBS positive 7. FOB name: Sal 8. Plans A. Epidural or other pain management - Sal B. Labor support identified - C. Tdap - Date: 07/30/2024 Flu - Date: 03/26/2024 [address] [facility] D. Breast or Bottle feed: Breast E. Baby's name - F. Circumcision - 9. Hospital Course: Obesity (BMI 30-39.9) 03/07/20242023 Marijuana use 01/11/2024 10/08/2024 Overview (04/05/2024): Stopped with + preg test Obesity 01/10/2023 10/08/2024 Overview (07/02/2024): BMI- 38 HgbA1C and 1 hour GTT at initial labs ASA 162mg at 12 weeks until delivery Detailed anatomy ultrasound Repeat GTT 24-28 weeks if early is normal Pre-preg BMI 35-39.9: NST weekly at 37 weeks BMI of 50 by 28wks transfer to [facility] DVT prophylaxis- Lovenox if CS and BMI >35 Obesity 04/09/2010 04/05/2024 Overview (03/07/2024): Last Assessment & Plan: 02-14 ref ref to endocrine or nutrition decreased calories and increase exercise Encounters Date Type Department Care Team Description 12/13/2024 Telephone Adult Medicine [address] [phone] Kati Villasenor MD My Chart Booking ; Care 11/20/2024 1:45 PM EDT Routine Obstetrics and Gynecology - [address] [phone] Katja Campos CNM care following vaginal delivery (Primary Dx); Care and examination of lactating mother 10/06/2024 8:38 AM EDT - 10/08/2024 11:45 AM EDT Hospital Encounter [facility] - Maternity [address] [place] [address] Xiomara Ferrer, Discharge Disposition: Home or Self Care 10/01/2024 4:00 PM EDT Routine Obstetrics and Gynecology [address] [id number] Katja Campos CNM Supervision of other normal , antepartum (Primary Dx); Positive GBS test; Obesity in ; NST (non-stress test) reactive; Severe obesity (BMI 35.0-39.9) with comorbidity (CMS/HCC V24, CMS/HCC V28) from Last 3 Months Immunizations Name Administration Dates Next Due DTaP (Infanrix) 6wks to less than 7yo ,09/20/2001,01/23/2001,11/13,2000 [id number] (Pentacel) 2mo to less than 5yo 2001,01/23/2001,2000,08/24 H1N1 Inj Preservative Free 09/02/2009 HPV 9-valent (Gardisil) 9yo to less than 46yo 12/03/2015 HPV, Quadrivalent 08/21/2014,08/27/2012 Hepatitis B Pediatric (Enger ix B; Recombivax HB) to less than 20 yo 05/08/2001,2000,2000 IPV Inactivated polio (Ipol) 6wks and older 03/29/2005,01/23/2001,2000,08/24 Influenza trivalent, 0.5mL, preservative free (Fluarix; FluLaval; Fluzone) ages 6mo and older (Afluria) 3 years and older 02/21/2019,02/20/2018,02/28/2017,07/04 Influenza trivalent, with pr eservative (Fluzone; Afluria) 6mo and older 02/27/2020,06/08/2012,04/09/2010,03/07,05/11/2006,03/29/2005 Influenza, Unspecified 02/26/2022 MMR, measles mumps and rubel la Live (Priorix; M-M-R II) 12mo and older 03/29/2005,2001 Meningococcal MCV4P 12/14/2016,07/04/2011 Moderna SARS-CoV-2 COVID-19, mRNA, LNP-S, preservative free 03/09/2021,02/23/2021 PPD Test 03/16/2009,03/13/2008,02/28/2007 Pneumococcal Conjugate Vacci ne, 7 Valent 2001,01/23/2001,2000,08/24 Tdap Tetanus diptheria acell ular pertussis (Boostrix; Adacel) 7yo and older 07/30/2024,06/10/2022,07/04/2011 Varicella live (Varivax) 12m o and older 04/09/2010,2001 Surgical History Surgery Date Site/Laterality Comments CHOLECYSTECTOMY DILATION AND CURETTAGE OF UTERUS Medical History Medical History Date Comments Obesity 04/09/2010 Scoliosis 09/03/2014 [facility] ([facility] V24, [facility] V28) 04/09/2010 ncidental finding xray 10-10 [facility]asymptomatic[facility] update Bilateral low back pain with out sciatica 12/03/2015 Family History Medical History Relation Name Comments No Known Problems Father No Known Problems Maternal Grandfather Diabetes Maternal Grandmother dementi a, glaucoma No Known Problems Mother No Known Problems Paternal Grandfather No Known Problems Paternal Grandmother Relation Name Status Comments Father Alive 05/1969 Chase Maternal Grandfather Alive Maternal Grandmother Alive Mother Alive 06/1978 Sandy Paternal Grandfather Paternal Grandmother Social History Tobacco Use Types Packs/Day Years Used Date Smoking Tobacco: Never Smokeless Tobacco: Never Tobacco Cessation:Counseling Given: Not Answered Alcohol Use Standard Drinks/Week Comments No 0 (1 standard drink = 0.6 oz pur e alcohol) Housing Instability Answer Date Recorde d Are you worried that in the next 2 months you may not have stable housing? No 10/06/2024 Food Access & Nutrition Answer Date Rec orded Do you have access to a vari ety of food including fruits and vegetables? No 10/06/2024 Access to Healthcare Answer Date Record ed Within the last 3 months, alyssa henley many times did you visit the emergency department for your medical care? 0 10/06/2024 Health Literacy Answer Date Recorded How often do you need to hav e someone help you when you read instructions, pamphlets, or other written material from your doctor or pharmacy? Never 10/06/2024 Caregiver: How often do you need to have someone help you when you read instructions, pamphlets, or other written material from your doctor or pharmacy? Not on file 10/06/2024 Financial Risk Answer Date Recorded How hard is it for you to pa y for the very basics like food, housing, medical care, and air conditioning / heating? Not very hard 10/06/2024 Transportation Answer Date Recorded Has the lack of transportati on kept you from meetings, work, or from getting things needed for daily living? No Has the lack of transportati on kept you from medical appointments or from getting medications? No 10/06/2024 Social Isolation Answer Date Recorded How often do you feel lonely or isolated from th ose around you? Never 10/06/2024 Food Risk Answer Date Recorded Within the past 12 months we worried whether our food would run out before we got money to buy more. Never true 10/06/2024 Within the past 12 months th e food we bought just didn't last and we didn't have money to get more. Never true 10/06/2024 Dependent Care Answer Date Recorded Do you need help finding or paying for care for your loved ones. For example, child care worker or elderly care for an older adult? No 10/06/2024 Education Answer Date Recorded Do you think completing more education or training, like finishing a GED, going to college, or learning a trade, would be helpful for you? No 10/06/2024 Employment and Income Answer Date Recor ded During the last four weeks, have you been actively looking for work? No 10/06/2024 Living Situation Answer Date Recorded What is your living situation? 0 10/06/2024 Interpersonal Safety Answer Date Record ed Physical Abuse 10/06/2024 Verbal Abuse 10/06/2024 Comments No Sex and Gender Information Value Date Recorded Sex Assigned at Female 10/06/2024 8:49 AM EDT Legal Sex Female 4:31 AM EST Gender Identity Female 10/06/2024 8:49 AM EDT Sexual Orientation Straight 10/06/2024 8: 49 AM EDT Obstetrics History Para Term AB IAB SAB Ectopic Multiple Livin g Live Births 1 1 1 0 1 1 Date Outcome GA Total Labor Labor/2nd/3rd Weight Sex Type Anes PTL Rebeca A1 A5 Name Clin 2024 Term 39w 5d 4h 38m 4h 03m/0h 20m/0h 15m 3520 g (124.2 oz) F Vag-S pont Nitrou s Oxide N Livin g 9 9 Mandori Pamela Ponce p, CNM Complications:None Delivery Location:[facility] Last Filed Vital Signs Vital Sign Reading Time Taken Comments Blood Pressure 107/75 11/20/2024 1:55 PM EDT Pulse 88 11/20/2024 1:55 PM EDT Temperature 36.2 C (97.2 F) 10/08/2024 7:47 AM EDT Respiratory Rate 16 10/08/2024 7:47 AM EDT Oxygen Saturation 100% 10/08/2024 7:47 AM EDT Inhaled Oxygen Concentration - - Weight 95.3 kg (210 lb) 11/20/2024 1:55 PM EDT Height 160 cm (5' 3 ) 10/06/2024 8:50 AM EDT Body Mass Index 37.2 10/06/2024 8:50 AM EDT Plan of Treatment Health Maintenance Due Date Last Done Comments COVID-19 Vaccine ( season) 2024 12/26/2023, 07/21/2021, 03/09/2021, Additional history exists Gonorrhea/Chlamydia Screening 01/11/2025 01/12/2024 Influenza Vaccine (#1) 2025 , 04/04/2023, 03/11/2022, Additional history exists Cervical Cancer Screening: Pap Smear 07/27/2025 07/27/2022, 07/27/2022, 07/27/2022 Social Influencers of Health Screening 10/06/2025 10/06/2024 Cholesterol Screening (Lipid Panel) 01/11/2029 01/12/2024, 01/12/2024 DTaP,Tdap,and Td Vaccines (9 - Td or Tdap) 07/30/2034 07/30/2024, 06/10/2022, 07/04/2011, Additional history exists Hepatitis B Vaccines Completed 05/08/2001, 2000, 2000 HIB Vaccines Completed 2001, 05/29, 01/23/2001, Additional history exists Pneumococcal Vaccine: Pediatrics (0 to 5 Years) and At-Risk Patients (6 to 49 Years) Completed 2001, 01/23/2001, 2000, Additional history exists IPV Vaccines Completed 03/29/2005, 05/29, 01/23/2001, Additional history exists MMR Vaccines Completed 03/29/2005, 2001 Varicella Vaccines Completed 04/09/2010, 2001 HPV Vaccines Completed 12/03/2015, 07/28, 08/27/2012 Meningococcal ACWY Vaccine Completed 12/14/2016, Hepatitis C Screening Completed 01/12/2024 HIV Screening Completed 03/13/2024, 12/27, 01/12/2024 Depression Screening Completed 12/13/2024 Hepatitis A Vaccines Aged Out No long er eligible based on patient's age to complete this topic Meningococcal B Vaccine Aged Out No l onger eligible based on patient's age to complete this topic RSV Immunization Patients Under 20 months Aged Out No longer eligible based on patient's age to complete this topic Procedures Procedure Name Priority Date/Time Associated Diagnosis Comments DRUG ABUSE SCREEN 8A PANEL, URINE Routine 10/06/2024 2:13 PM EDT CBC WITH AUTO DIFFERENTIAL STAT 10/06/2024 9:46 AM EDT TREPONEMA PALLIDUM ANTIBODY WITH REFLEX TO RPR AND PARTICLE AGGLUTINATION STAT 10/06/2024 9:46 AM EDT TYPE AND SCREEN STAT 10/06/2024 9:46 AM EDT CBC AND DIFFERENTIAL STAT 10/06/2024 9:46 AM EDT HM HEPATITIS C SCREENING Routine 01/12/2024 HM HIV SCREENING Routine 01/12/2024 LIPID PANEL Routine 01/12/2024 GONORRHEA/CHLAMYDIA SCRREENING Routine 01/12/2024 HM HPV Routine 07/27/2022 from Last 3 Months or Most Recently Relevant to Health Maintenance Results * Drug abuse screen 8a panel, urine (10/06/2024 2:13 PM EDT) Pathologist [facility] Amphetamine Screen, Ur Negative Negative LAB CHEMISTRY METHOD 10/06/2024 4:44 PM [facility] Comment:Certain OTC medicati ons containing ephedrine, phenylephrine, pseudoephedrine and phenylpropanolamine can cause false positive results. Barbiturate Screen, Ur Negative Negative LAB CHEMISTRY METHOD 10/06/2024 4:44 PM EDT [facility] Benzodiazepine Screen, Ur Negative Negative LAB CHEMISTRY METHOD [facility] Cocaine Screen, Ur Negative Negative LAB CHEMISTRY METHOD 10/06/2024 4:44 PM EDT [facility] Opiate Screen, Ur Negative Negative LAB CHEMISTRY METHOD 10/06/2024 4:44 PM [facility] Cannabinoid (THC) Screen, Ur Negative Negative LAB CHEMISTRY METHOD 10/06/2024 4:44 PM EDT [facility] Comment:Specimens from patie nts taking pantoprazole sodium (Protonix) have been shown to produce false positive results. Oxycodone Screen, Ur Negative Negative LAB CHEMISTRY METHOD [facility]24 [facility] Fentanyl, Ur Negative Negative LAB CHEMISTRY METHOD 10/06/2024 4:44 PM [facility] Urine Urine specimen obtained by clean catch procedure / Unknown Non-blood Collection / Unknown 10/06/2024 2:13 PM EDT 10/06/2024 4:04 PM EDT Narrative [facility] - 10/06/2024 4:44 PM EDT Assay cutoffs: Amphetamines 1000 ng/mL Barbiturates 200 ng/mL Benzodiazepines 200 ng/mL Cocaine 300 ng/mL Fentanyl 1 ng/mL Opiates 300 ng/mL Oxycodone 100 ng/mL THC 50 ng/mL Semi-quantitative assay for screening purposes only. Unconfirmed screening result should not be used for non-medical purposes. *ALTERNATE METHOD CONFIRMATION DONE UPON REQUEST ONLY* [facility] Lilian Ingram [facility] URINE ORDERABLES Final Re sult Performing Organization Address [facility]/ZIP Co de Phone Number [facility] [address] [place] [address], [place] [phone] * Treponema pallidum antibody with reflex to RPR and particle agglutination (10/06/2024 9:46 AM EDT) [facility] T. Pallidum Antibodies Negative Negative LAB CHEMISTRY METHOD 10/06/2024 10:38 AM EDT [facility] Blood Venous blood specimen / Unknown Venipuncture / Unknown 10/06/2024 9:46 AM EDT 10/06/2024 9:52 AM EDT [facility] LAB BLOOD ORDERABLES Final Re sult Performing Organization Address [facility]/ZIP Co de Phone Number [facility] [address] [place] [address], [place] [phone] * CBC auto differential (10/06/2024 9:46 AM EDT) [facility] WBC 7.0 4.8 - 10.8 K/[facility] LAB HEMETOLOGY METHOD 10/06/2024 10:00 AM EDT [facility] RBC 3.90 3.80 - 4.80 M/[facility] LAB HEMETOLOGY METHOD 10/06/2024 10:00 AM [facility] Hemoglobin 11.7 11.5 - 16.0 g/dL LAB HEMETOLOGY METHOD 10/06/2024 10:00 AM [facility] Hematocrit 35.8 35.0 - 47.0 % LAB HEMETOLOGY METHOD 10/06/2024 10:00 AM [facility] MCV 91.1 79.0 - 98.0 FL LAB HEMETOLOGY METHOD 10/06/2024 10:00 AM [facility] MCH 29.8 27.0 - 32.0 pcg LAB HEMETOLOGY METHOD 10/06/2024 10:00 AM [facility] MCHC 32.7 32.0 - 37.0 g/dL LAB HEMETOLOGY METHOD 10/06/2024 10:00 AM [facility] RDW 12.8 11.0 - 15.0 % LAB HEMETOLOGY METHOD 10/06/2024 10:00 AM [facility] Platelets 252 130 - 400 K/mcL LAB HEMETOLOGY METHOD 10/06/2024 10:00 AM [facility] MPV 9.9 7.0 - 11.0 FL LAB HEMETOLOGY METHOD 10/06/2024 10:00 AM [facility] NRBC 0.0 <1.0 % LAB HEMETOLOGY METHOD 10/06/2024 10:00 AM [facility] NRBC Absolute 0.00 <0.10 K/mcL LAB HEMETOLOGY METHOD 10/06/2024 10:00 AM [facility] Neutrophils Relative 68.6 % LAB HEMETOLOGY METHOD 10/06/2024 10:00 AM [facility] Lymphocytes Relative 24.8 % LAB HEMETOLOGY METHOD 10/06/2024 10:00 AM [facility] Monocytes Relative 6.0 % LAB HEMETOLOGY METHOD 10/06/2024 10:00 AM EDT [facility] Eosinophils Relative 0.1 % LAB HEMETOLOGY METHOD 10/06/2024 10:00 AM [facility] Basophils Relative 0.1 % LAB HEMETOLOGY METHOD 10/06/2024 10:00 AM EDT [facility] Immature Granulocytes Relative 0.4 % LAB HEMETOLOGY METHOD 10/06/2024 10:00 AM EDT [facility] Neutrophils Absolute 4.81 1.50 - 7.00 K/mcL LAB HEMETOLOGY METHOD 10/06/2024 10:00 AM EDT [facility] Lymphocytes Absolute 1.74 1.00 - 5.00 K/mcL LAB HEMETOLOGY METHOD 10/06[facility]2024 [facility] Monocytes Absolute 0.42 0.20 - 1.00 K/mcL LAB HEMETOLOGY METHOD 10/06[facility]2024 [facility] Eosinophils Absolute 0.01 0.00 - 0.50 K/mcL LAB HEMETOLOGY METHOD 10/06/2024 10:00 AM [facility] Basophils Absolute 0.01 0.00 - 0.20 K/mcL LAB HEMETOLOGY METHOD 10/06/2024 10:00 AM EDT [facility] Immature Granulocytes Absolute 0.03 0.00 - 0.03 K/mcL LAB HEMETOLOGY METHOD 10/06/2024 10:00 AM [facility] Blood Venous blood specimen / Unknown Venipuncture / Unknown 10/06/2024 9:46 AM EDT 10/06/2024 9:52 AM EDT us Maame KELLER LAB BLOOD ORDERABLES Final Re sult [facility] [address] [place] [address], [place] [phone] * Type and screen (10/06/2024 9:46 AM EDT) Pathologist [facility]BO Group O 10/06/2024 10:43 AM EDT [facility] Rh Type Positive 10/06/2024 10:43 AM EDT [facility] Antibody Screen Negative 10/06/2024 10:43 AM EDT [facility] Blood Venous blood specimen / Unknown Venipuncture / Unknown 10/06/2024 9:46 AM EDT 10/06/2024 9:52 AM EDT Maame Ingram CNM LAB BLOOD BANK TEST ORDERABLE S Final Result [facility] [address] [place] [address], [place] [phone] * HIV Screening (01/12/2024) Pathologist [facility] HIV Screening Abstracted [facility] Provider HEALTH MAINTENANCE Final Result * Hepatitis C Screening (01/12/2024) Pathologist [facility] Hepatitis C Screening Abstracted [facility] Provider HEALTH MAINTENANCE Final Result * Gonorrhea/Chlamydia Screening (01/12/2024) Pathologist [facility] Gonorrhea/Chla mydia Screening Abstracted [facility] Provider HEALTH MAINTENANCE Final Result * (ABNORMAL) Lipid panel (01/12/2024) [facility] LDL/HDL Ratio 3 0 - 4 Triglycerides 155(A) 0 - 150 mg/dL Cholesterol 149 0 - 200 mg/dL HDL 48 >=40 mg/dL LDL Cholesterol 70 0 - 100 mg/dL Blood Venous blood specimen / Unknown [facility] Provider LAB BLOOD ORDERABLES Minal l Result * Cervical Cancer Screening: HPV (07/27/2022) Cervical Cancer Screening: HPV No interpretation , abstracted Historical Provider MD HEALTH MAINTENANCE Final Result from Last 3 Months or Most Recently Relevant to Health Maintenance Insurance [facility] [place] [address] Advance Directives * Full Code - Default (Latest Code Status on File) Date Activated Date Inactivated Comments 10/06/2024 7:49 PM 10/08/2024 1:50 PM This is orde r is used when code status has not been discussed with the patient, or code status is otherwise unknown/unconfirmed To update the patient's code status, place a code status order. Do not modify or discontinue any currently active code status orders. * Full Code - Confirmed Date Activated Date Inactivated Comments 10/06/2024 9:22 AM 10/06/2024 7:[address] atus was ascertained in the following way: Code status discussion: Per Policy on Life-Sustaining Measures: [place] To update the patient's code status, place a code status order. Do not modify or discontinue any currently active code status orders. Care Teams Court Bailiff Or Sheriff Relationship Specialty Start Date End Date Kati Villasenor MD [address] [place] [phone] PCP - General Internal Medicine 05/07/20
--- OUTSIDE RECORDS SUMMARY | 2025-01-01 15:41 | XMS_ITS | Clinical Summary ---
Author Organization [facility] Address [address] [place] [address] Phone Care Team Providers Care Child Development Consultant Name Role Phone Sherwin Lucero MD Primary Care Provider [phone] Allergies No known active allergies Medications No known medications Encounters Date Type Department Care Team Description 12/31/2024 10:10 AM EDT Office Visit [address] [id number] Justin Colbert MD Keratoconus of both eyes (Primary Dx) from Last 3 Months Social History Tobacco Use Types Packs/Day Years Used Date Smoking Tobacco: Some Days Cigarettes Smokeless Tobacco: Never Tobacco Cessation:Ready to Q uit: Not Asked; Counseling Given: Not Answered Alcohol Use Standard Drinks/Week Comments Not Currently 0 (1 standard drink = 0.6 oz pur e alcohol) Education Answer Date Recorded Are you interested in more education? Not on isabel e 01/17/2023 Are you concerned about learning? Not on file 01/17/2023 No 01/17/2023 No 01/17/2023 Digital Access Answer Date Recorded No 01/17/2023 No 01/17/2023 Reliable internet access at home? Not on file 01/17/2023 Device with a working camera? Not on file Comments Unknown Sex and Gender Information Value Date Recorded Sex Assigned at Not on file Legal Sex Female 4:41 PM EDT Gender Identity Not on file Sexual Orientation Not on file Plan of Treatment Upcoming Encounters Date Type Department Care Team ([facility] st Contact Info) Description 07/03/2025 10:10 AM EST Office Visit [facility] [address] [place] [address] [place] [address] Justin Colbert MD [address] [place] [phone] [email or web address] Health Maintenance Due Date Last Done Comments Adult Td,Tdap Booster 2000 DEPRESSION SCREENING 2012 HPV VACCINES (1 - 3-dose series) 2015 CHLAMYDIA SCREENING 2016 HEPATITIS C SCREENING 2018 HIV ONE-TIME SCREENING (18-6 5 YEARS) 2018 PNEUMOCOCCAL VACCINES (0-49 years) (1 of 2 - PCV) 2019 PAP SMEAR 2021 COVID-19 VACCINE (1 - 2023-2 5 season) 2024 SMOKING Hx and SMOKELESS TOBACCO SCREENING 12/31/2025 12/31/2024 MENINGOCOCCAL VACCINES (ACWY) Completed , 07/04/2011 HEPATITIS A VACCINES Aged Out No long er eligible based on patient's age to complete this topic HIB VACCINES Aged Out No longer eligi ble based on patient's age to complete this topic MENINGOCOCCAL VACCINES (B) Aged Out N o longer eligible based on patient's age to complete this topic Medical Devices Not on file Procedures Procedure Name Priority Date/Time Associated Diagnosis Comments CORNEAL TOPOGRAPHY - OU - BOTH EYES Routine 12/31/2024 11:13 AM EDT Keratoconus of both eyes from Last 3 Months Results * Corneal Topography - OU - Both Eyes (12/31/2024 11:13 AM EDT) Anatomical Region Laterality Modality Head Optical Coherenc e Tomography Narrative 12/31/2024 11:47 AM EDT See notes us Justin Colbert MD OPHTHALMOLOGY IMAGING Final Result from Last 3 Months Insurance [facility] ALLANCE [facility]9Lenses ALLANCE [facility]CO [facility]enses [facility] [employer] ALLANCE ACO [facility]enses ALLANCE ACO [facility]enses ALLANCE ACO Care Teams Child Development Consultant Relationship Specialty Start Date End Date Sherwin Lucero MD [address] [place] [id number] PCP - General Internal Medicine 01/17/23 Additional Source Comments The information contained in this document represents components of the legal health record. It is not the complete legal health record.[facility]
== END 2025-01-01 15:22 | disposition home or self-care (01) ==
LOC: HO.HGS 15:11
PROVIDERS: Visit Provider Surgery
DX: Z90.49 Acquired absence of other specified parts of digestive tract (principal)
CPT/HCPCS: 99024

== ENCOUNTER → 2025-01-01 15:11 | Outpatient (BNVA) | payer OTHER, SELFPAY | PROVIDERS: Visit Provider Surgery | DX: Z90.49 Acquired absence of other specified parts of digestive tract (principal) | CPT/HCPCS: 99212 ==